=== PATIENT | female | born 1975 | race Caucasian/White ===

== ENCOUNTER → 2018-05-26 15:41 | Outpatient (CLI) | payer OTHER, SELFPAY ==
--- NOTE | 2018-05-26 | DI.ECHO.S_ITS ---
[facility]---------+ [facility] +---------+ : : [address] : : : : [id number] : : : : Phone: [phone]+ Echocardiogram Report + + :Name: JEWEL FUENTES Study Date: 05/26/2018 Height: 63 in : :[facility] Exam Location: [place] Weight: 109 lb : : Gender: Female BSA: 1.5 m2 : :: 1975 Age: 42 yrs BP: 135/90 mmHg: :Reason For Study: Hypertension : :Ordering Physician: Dr. Crane : :Rubin Performed By: Kayley Page : + + Interpretation Summary Normal both left and right ventricle size and function. The ejection fraction is 60-65%. Moderately dilated left atrium. No valvular abnormality. Procedure: A two-dimensional transthoracic echocardiogram with color flow and Doppler was performed. The study quality was technically good. There is no prior echocardiogram noted for this patient. The patient was in sinus bradycardia with heart rates between 46-54 bpm during the exam. Left Ventricle: The left ventricle is normal in size, wall thickness, and systolic function without any focal wall motion abnormalities. The ejection fraction is estimated to be 60-65%. Diastolic parameters suggest probable normal left ventricular diastolic function and normal filling pressures. Right Ventricle: The right ventricle is normal in size and function. Atria: The left atrium is moderately dilated. Right atrial size is normal. The interatrial septum is intact with no evidence for an atrial septal defect. Mitral Valve: The mitral valve is normal in structure and function. There is trace mitral regurgitation. Aortic Valve: The aortic valve is trileaflet. The aortic valve opens well. No aortic regurgitation is present. Tricuspid Valve: The tricuspid valve is normal in structure and function. There is trace tricuspid regurgitation. The right ventricular systolic pressure is estimated to be at least 21 mmHg based on an estimated right atrial pressure of 3 mm Hg. Pulmonic Valve: The pulmonic valve is not well visualized. There is trace pulmonic regurgitation. Great Vessels: The aortic root is normal size. The dimensions of the ascending aorta are normal. The pulmonary artery is normal size. The IVC is of normal diameter and collapses greater than 50% with a sniff. This suggests a low right atrial pressure of 3 mm Hg. Pericardium/ Pleura There is no pericardial effusion. There is no pleural effusion. MMode/2D Measurements & Calculations LVIDd: 4.6 cm LVOT diam: 1.8 cm LVIDs: 3.2 cm Ao root diam: 2.9 cm FS: 30.3 % asc Aorta Diam: 3.3 cm EPSS: 0.26 cm IVSd: 0.73 cm LVPWd: 0.77 cm LV hallman. diameter/BSA (cm/m^2): 3.1 LV sys. diameter/BSA (cm/m^2): 2.2 LA A2 area: 20.0 cm2 RA long axis: 5.0 cm LA A4 area: 19.3 cm2 RA area: 14.6 cm2 LA length (vol): 5.2 cm RA vol: 36.0 ml LA vol: 63.0 ml RA : 24.1 ml/m2 LA vol index: 42.2 ml/m2 IVC diam: 2.0 cm RVD1 (basal): 3.2 cm TAPSE: 2.3 cm Doppler Measurements & Calculations Ao V2 max: 166.8 cm/sec LVOT Max Corbin: 126.0 cm/sec Ao V2 mean: 106.6 cm/sec LV V1 max P.4 mmHg Ao max P.1 mmHg LV V1 VTI: 25.3 cm Ao mean P.3 mmHg HAIDER(I,D): 1.9 cm2 Ao V2 VTI: 33.1 cm HAIDER(V,D): 1.9 cm2 sev ratio: 0.77 HAIDER indexed to BSA (cm^2/m^2): 1.3 MV E max corbin: 120.6 cm/sec TR max corbin: 213.3 cm/sec MV A max corbin: 53.7 cm/sec TR max P.2 mmHg MV E/A: 2.2 PA V2 max: 89.7 cm/sec Med Peak E' Corbin: 7.5 cm/sec PA V2 mean: 60.2 cm/sec E/E' med: 16.1 PA mean P.6 mmHg Lat Peak E' Corbin: 12.4 cm/sec E/E' lat: 9.7 E/e' average: 12.9 MV dec time: 0.23 sec MV P1/2t: 54.3 msec MV P1/2t max corbin: 105.2 cm/sec SV(LVOT): 63.3 ml MVA(P1/2t): 4.1 cm2 Electronically signed by: Esther Diana on Reading Physician:05/26/2018 05:32 PM
== END ==
PROVIDERS: Visit Provider Internal Medicine
DX: R00.1 Bradycardia, unspecified (principal); I10 Essential (primary) hypertension
CPT/HCPCS: 93306

== ENCOUNTER → 2020-04-04 11:06 | Outpatient (CLI) | payer OTHER, SELFPAY ==
[2020-04-04 11:45] LABS: COVID19 -Nasal RAPID Negative (Negative)
== END ==
PROVIDERS: Visit Provider Nurse Practitioner
DX: Z01.812 Encounter for preprocedural laboratory examination (principal); Z20.822 Contact with and (suspected) exposure to COVID-19
CPT/HCPCS: 87635

== ENCOUNTER → 2020-04-06 13:31 | Outpatient (CLI) | payer OTHER, SELFPAY ==
--- NOTE | 2020-04-06 13:33 | DI.ECHO.S_ITS ---
[facility]---------+ [facility] +---------+ : : [address] : : : : [id number] : : : : Phone: [phone] +---------+ Echocardiogram Report + + :Name: JEWEL FUENTES Study Date: 04/06/2020 Height: 64 in : :[facility] ReadingLocation: Weight: 109 lb : : Gender: Female BSA: 1.5 m2 : :: 1975 Age: 44 yrs BP: 124/89 mmHg: :Reason For Study: PALPITATIONS : :Ordering Physician: JOANN, : :LAILA Performed By: Saida Tellez : :Referring: LAILA DAVID : + + Interpretation Summary The left ventricle is normal in size and wall thickness. The ejection fraction is estimated to be 60-65%. No significant change in LVEF from the previous study. The right ventricle is normal in size and function. No significant valvular pathology seen. The IVC is of normal diameter and collapses greater than 50% with a sniff. This suggests a low right atrial pressure of 3 mm Hg. Mild atherosclerotic plaque(s) in the aortic arch. Procedure: A two-dimensional transthoracic echocardiogram with color flow and Doppler was performed. The study quality was technically adequate. Comparison is made with the echocardiogram of 05/26/2018. The patient was in sinus rhythm with heart rates between 55-69 bpm during the exam. Left Ventricle: The left ventricle is normal in size and wall thickness. There is no thrombus. The ejection fraction is estimated to be 60-65%. There are no focal wall motion abnormalities. Diastolic parameters suggest probable normal left ventricular diastolic function and normal filling pressures. Right Ventricle: The right ventricle is normal in size and function. Atria: The left atrial size is normal. The left atrium has significantly decreased in size since the prior echo exam. Right atrial size is normal. There is no Doppler evidence for an interatrial shunt. Mitral Valve: The mitral valve is normal in structure and function. There is trace mitral regurgitation. Aortic Valve: The aortic valve opens well. The aortic valve is not well visualized. There is no aortic valve stenosis. No aortic regurgitation is present. Tricuspid Valve: The tricuspid valve is normal in structure and function. There is trace tricuspid regurgitation. Pulmonary artery pressures cannot be estimated because of the lack of a measurable TR jet velocity but the IVC suggests a CVP of around 3 mmHg. Pulmonic Valve: The pulmonic valve leaflets are thin and pliable; valve motion is normal. There is no pulmonic valvular regurgitation. Great Vessels: The aortic root is normal size. The dimensions of the ascending aorta are normal. Mild atherosclerotic plaque(s) in the aortic arch. The IVC is of normal diameter and collapses greater than 50% with a sniff. This suggests a low right atrial pressure of 3 mm Hg. Pericardium/ Pleura There is no pericardial effusion. There is no pleural effusion. MMode/2D Measurements & Calculations LVIDd: 4.3 cm LVOT diam: 1.9 cm LVIDs: 2.8 cm Ao root diam: 3.2 cm FS: 34.6 % Ao Arch Diam (Prox Trans): 2.7 cm EPSS: 0.42 cm IVSd: 0.85 cm LVPWd: 0.79 cm LV hallman. diameter/BSA (cm/m^2): 2.8 LV sys. diameter/BSA (cm/m^2): 1.9 LA A2 area: 18.7 cm2 RA long axis: 3.9 cm LA A4 area: 11.6 cm2 RA area: 10.1 cm2 LA length (vol): 4.2 cm RA vol: 21.8 ml LA vol: 43.7 ml RA : 14.4 ml/m2 LA vol index: 28.9 ml/m2 IVC diam: 1.6 cm RVD1 (basal): 3.1 cm TAPSE: 2.4 cm Doppler Measurements & Calculations Ao V2 max: 151.8 cm/sec LVOT Max Corbin: 116.8 cm/sec Ao V2 mean: 105.8 cm/sec LV V1 max P.5 mmHg Ao max P.2 mmHg LV V1 VTI: 23.7 cm Ao mean P.1 mmHg HAIDER(I,D): 2.2 cm2 Ao V2 VTI: 32.6 cm HAIDER(V,D): 2.3 cm2 sev ratio: 0.73 HAIDER indexed to BSA (cm^2/m^2): 1.4 MV E max corbin: 92.9 cm/sec PA V2 max: 57.1 cm/sec MV A max corbin: 66.5 cm/sec PA V2 mean: 37.8 cm/sec MV E/A: 1.4 PA mean P.65 mmHg Med Peak E' Corbin: 12.5 cm/sec PA pr(Accel): 7.1 mmHg E/E' med: 7.5 Lat Peak E' Corbin: 11.4 cm/sec E/E' lat: 8.2 E/e' average: 7.8 MV dec time: 0.24 sec SV(OT): 70.3 ml Reading Physician:10:29 AM
--- NOTE | 2020-04-06 14:00 | DI.MG.S_ITS ---
Indications: Date: 04/06/2020 14:03 At the request of: LAILA DAVID Procedure: MM screening mammo BI BILATERAL DIGITAL SCREENING MAMMOGRAM 3D/2D WITH CAD: 04/06/2020 CLINICAL: Routine screening. Family history of breast cancer. Comparison is made to exam dated: 07/04/2018 mammogram - [facility]. The tissue of both breasts is heterogeneously dense. This may lower the sensitivity of mammography. Current study was also evaluated with a Computer Aided Detection (CAD) system. No significant masses, calcifications, or other findings are seen in either breast. There has been no significant interval change. IMPRESSION: NEGATIVE There is no mammographic evidence of malignancy. A 1 year screening mammogram is recommended. This exam was interpreted at Station ID: [id number]. NOTE: For mammograms, a report in lay terms will be sent to the patient. Approximately 15% of breast malignancies will not be visualized mammographically. In the management of a palpable breast mass, a negative mammogram must not discourage biopsy of a clinically suspicious lesion. Electronically Signed By: Janes arriaga/scott:04/07/2020 09:45:47 letter sent: Normal Exam ACR BI-RADS Category 1: Negative [id number]
--- NOTE | 2020-04-06 15:55 | PM.TREADMILL ---
Cardiac Stress Test Report Referral & Results Date Patient Seen: 04/06/20 Time Patient Seen: 15:55 Requesting provider: Clair Bridges Indication: palpitations Rest ECG: sinus rhythm with short GA interval Procedure Note: Standard Miki procotol, 12:00, 11.8 METS Very good exercise capacity, EMILY -41% No hemodynamic response to exercise No chest pain or anginal symptoms No significant ST changes at peak; no ectopy Impression: Normal exercise stress test Please note: Actual ECG tracings can be found in the PACS system.
--- NOTE | 2020-04-06 18:45 | DI.NM.S_ITS ---
DATE OF SERVICE: 04/06/2020 PROCEDURE: Exercise stress test. INDICATION: Palpitation. EXERCISE STRESS TEST: The patient underwent exercise stress test under the supervision of an attending staff using Miki protocol. She walked on Miki protocol for 12 minutes and 01 seconds, achieved 91 percent of target heart rate, normal blood pressure response, 12.8 METs of workload. Functional aerobic impairment -41 percent. Baseline EKG revealed sinus rhythm with short interval with repolarization changes, RSR-complex in V1 to V2 and less than [address] elevation in V1 to V2. During stress, there were no convincing ischemic EKG changes seen. No significant arrhythmias seen. There was some nonspecific ST changes. The patient did not have any chest pain or anginal symptoms. CONCLUSION: Exercise stress test did not reveal any convincing inducible ischemic changes. Good exercise tolerance. Normal hemodynamic response. No anginal symptoms. No significant sustained arrhythmias seen. Overall, this is a low-risk exercise stress test. Keke Li - SAMANTHA/che/ernestina doc#: [id number]/job#: [id number] dd: 04/06/2020 17:42:00 dt: 04/06/2020 18:35:00 DICTATING /COPIES TO: Clair Bridges MD COPIES MNE: SHITAL;
== END ==
PROVIDERS: PCP Family Medicine; Referring Provider Internal Medicine Cardiovascular Disease; Visit Provider Internal Medicine Cardiovascular Disease
DX: Z12.31 Encounter for screening mammogram for malignant neoplasm of breast (principal); Z80.3 Family history of malignant neoplasm of breast; R00.2 Palpitations
CPT/HCPCS: 77063; 77067; 93017; 93306